=== PATIENT | female | born 1995 | race Caucasian/White ===

== ENCOUNTER 2018-08-07 06:24 | Inpatient (IN) | payer OTHER ==
[2018-08-07] MEDS ORDERED: DESFLURANE 15 MIN (07:00)
[2018-08-07] MEDS ORDERED: SUCCINYLCHOLINE CHLORIDE 100 MG/5 ML SYG IV (07:00)
[2018-08-07 07:27] LABS: WHITE BLOOD COUNT 7.2 10^3/ul (4.8-10.8)
[2018-08-07 07:27] LABS: ADD MAN DIFF? NO; BASOPHILS % 0.3 % (0.0-2.0); EOSINOPHILS # 0.1 10^3/ul (0.0-0.5); EOSINOPHILS % 1.3 % (0.0-7.0); HEMATOCRIT 37.6 % (37.0-47.0); HEMOGLOBIN 12.8 g/dl (12.0-16.0); MEAN CORPUSCULAR HEMOGLOBIN 29.3 pg (29.0-33.0); MEAN PLATELET VOLUME 11.1 fl (7.4-10.4); MONOCYTE # 0.5 10^3/ul (0.3-0.9); MONOCYTES % 6.9 % (0.0-11.0); NEUTROPHIL # 4.5 10^3/ul (1.6-7.5); NEUTROPHILS % 63.1 % (39.0-77.0); PLATELET COUNT 223 10^3/UL (140-415); RED BLOOD COUNT 4.37 10^6/ul (4.20-5.40)
[2018-08-07 07:48] LABS: ALANINE AMINOTRANSFERASE 27 IU/L (13-69); ALBUMIN 4.5 g/dl (3.3-4.9); ALKALINE PHOSPHATASE 61 IU/L (42-121); ANION GAP 12 (5-13); ASPARTATE AMINO TRANSFERASE 24 IU/L (15-46); BILIRUBIN,INDIRECT 0.6 mg/dl (0-1.1); BILIRUBIN,TOTAL 0.6 mg/dl (0.2-1.3); BLOOD UREA NITROGEN 13 mg/dl (7-20); CALCIUM 9.4 mg/dl (8.4-10.2); CARBON DIOXIDE 23 mmol/L (21-31); CHLORIDE 103 mmol/L (97-110); CREATININE 0.56 mg/dl (0.44-1.00); Estimated GFR > 60 mL/min (>60); GLUCOSE 95 mg/dl (70-220); INR 0.98; POTASSIUM 3.9 mmol/L (3.5-5.1); PROTIME 13.1 Sec (11.9-14.9); SODIUM 138 mmol/L (135-144); TOTAL PROTEIN 7.7 g/dl (6.1-8.1)
[2018-08-07 07:49] LABS: PARTIAL THROMBOPLASTIN TIME 31.1 Sec (23.0-35.0)
[2018-08-07] MEDS ORDERED: hydrALAzine 20 MG INJ IV (11:30)
[2018-08-07] MEDS ORDERED: ONDANSETRON 4 MG INJ IV ×2 (11:30→16:30)
[2018-08-07] MEDS ORDERED: HYDROmorphONE 1 MG/5 ML IV SYRINGE IV ×3 (11:30→16:16)
[2018-08-07] MEDS ORDERED: EPHEDrine SULFATE 50 MG/5 ML SYG IV (11:30)
[2018-08-07] MEDS ORDERED: DIPHENHYDRAMINE 50 MG INJ IV (11:30)
[2018-08-07] MEDS ORDERED: CEFAZOLIN 1 GM INJ (11:32)
[2018-08-07] MEDS ORDERED: ROCURONIUM 50 MG INJ (11:32)
[2018-08-07] MEDS ORDERED: MIDAZOLAM 1 MG/ML 2 ML INJ ×2 (11:32→16:36)
[2018-08-07] MEDS ORDERED: METOCLOPRAMIDE 10 MG INJ (11:32)
[2018-08-07] MEDS ORDERED: NEOSTIGMINE 3 MG/3 ML SYRINGE (11:32)
[2018-08-07] MEDS ORDERED: PROPOFOL 20 ML (11:32)
[2018-08-07] MEDS ORDERED: ONDANSETRON 4 MG INJ (11:32)
[2018-08-07] MEDS ORDERED: GLYCOPYRROLATE 0.4 MG INJ (11:32)
[2018-08-07] MEDS ORDERED: DEXAMETHASONE 4 MG/ML 5 ML INJ (12:37)
[2018-08-07] MEDS ORDERED: HYDROmorphONE 2 MG/ML SYG (12:38)
[2018-08-07] MEDS: CEFAZOLIN 2 GM/50 ML (PMX) 50 ML IVPB (12:39)
[2018-08-07] MEDS: BUPIVACAINE 0.25% (MPF) 30 ML INJ (12:59)
[2018-08-07] MEDS ORDERED: DIPHENHYDRAMINE 50 MG INJ (16:17)
[2018-08-07] MEDS ORDERED: MEPERIDINE 25 MG INJ (16:17)
[2018-08-07] MEDS ORDERED: NACL 0.9% 3 ML SYG IV (16:30)
[2018-08-07] MEDS ORDERED: HYDROmorphONE 1 MG/ML SYG IV (16:30)
[2018-08-07] MEDS ORDERED: HYDROCODONE/APAP (10/325) TAB PO (16:30)
[2018-08-07] MEDS: HYDROmorphONE 1 MG/5 ML IV SYRINGE IV ×5 (16:30→16:57)
[2018-08-07] MEDS ORDERED: METOCLOPRAMIDE 10 MG INJ IV (16:30)
[2018-08-07] MEDS ORDERED: CEPASTAT LOZENGE MT (16:30)
[2018-08-07] MEDS: MEPERIDINE 25 MG INJ IV ×2 (16:31→17:19)
[2018-08-07] MEDS: MIDAZOLAM 1 MG/ML 2 ML INJ IV (16:42)
[2018-08-07 17:18] LABS: CALCIUM 8.7 mg/dl (8.4-10.2)
[2018-08-07] MEDS: SOD CHLORIDE 0.9% 1,000 ML IV ×2 (17:21→20:13)
[2018-08-07] MEDS: LABETALOL HCL 20MG INJ IV (18:01)
[2018-08-07] MEDS: CALCIUM/VITAMIN D (500/200) TAB PO (20:13)
[2018-08-07 23:37] LABS: CALCIUM 8.2 mg/dl (8.4-10.2)
[2018-08-08] MEDS: SOD CHLORIDE 0.9% 1,000 ML IV ×2 (03:05→12:28)
[2018-08-08] MEDS: HYDROCODONE/APAP (5/325) TAB PO (05:35)
[2018-08-08] MEDS: LEVOTHYROXINE 100 MCG TAB PO (05:35)
[2018-08-08 06:11] LABS: CALCIUM 8.2 mg/dl (8.4-10.2)
[2018-08-08] MEDS: CALCIUM/VITAMIN D (500/200) TAB PO ×2 (08:34→13:02)
[2018-08-08 11:14] LABS: CALCIUM 8.4 mg/dl (8.4-10.2)
[2018-08-08] MEDS: CALCIUM CARBONATE 500 MG CHEW TAB PO (13:42)
[2018-08-08 14:47] LABS: CALCIUM 8.3 mg/dl (8.4-10.2)
== END 2018-08-08 14:45 | disposition home or self-care (01) | DRG 627 ==
LOC: REC 06:24 → MS1 18:45
PROC: 0GTK0ZZ Resection of Thyroid Gland, Open Approach (ICD-10-PCS; principal; 2018-08-07 08:00)
DX: C73 Malignant neoplasm of thyroid gland (principal); F41.9 Anxiety disorder, unspecified; E83.51 Hypocalcemia
CPT/HCPCS: 80053; 82310; 85025; 85610; 85730; 88307